=== PATIENT | female | born 1955 | race Caucasian/White ===

== ENCOUNTER 2020-12-23 10:52 | Emergency (ER) | payer MEDICARE, OTHER ==
[2020-12-23] MEDS ORDERED: Adenosine 6 MG/2 ML SDV IVPUSH ONE (11:09)
[2020-12-23] MEDS ORDERED: Adenosine 12 MG/4 ML SDV ONE (11:14)
[2020-12-23] MEDS ORDERED: Sodium Chloride 0.9% 1,000 ML IV SCH (11:15)
--- NOTE | 2020-12-23 11:23 | EDM.PDOC ---
ED HPI GENERAL MEDICAL PROBLEM - General Chief Complaint: Cardiovascular Problem Stated Complaint: CHEST PAIN AND SOB Time Seen by Provider: 12/23/20 11:03 Source of Information: Reports: Patient, Family History Limitations: Reports: No Limitations - History of Present Illness INITIAL COMMENTS - FREE TEXT/NARRATIVE: 65-year-old female presents to the ED feeling lightheaded dizzy with central chest pressure discomfort and a feeling like her heart is racing. She appreciates weakness in her lower extremities with trying to walk. Symptoms developed about an hour before coming to the ED. Associated nonproductive cough that she did not have prior. When she was attached to the monitor she was found to be in SVT at 167/min. She has no history of previous SVT issues. She a ppreciated some increased swelling in her lower extremities the last few days but they have been traveling and spending lengthy time in the car in route to [place]. Onset: Today, Sudden Onset Date: 12/23/20 Onset Time: 10:00 Duration: Minutes:, Constant, Getting Worse Location: Reports: Chest (Central chest discomfort with feeling her heart is racing.) Quality: Reports: Pressure Severity: Mild Improves with: Reports: None Worsens with: Reports: Other (Used to be worse with exertion.) Associated Symptoms: Reports: Chest Pain, Cough, Malaise, Shortness of Breath, Other. 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 (see below) (Only her regular medications.) Chest Pain Score (Numeric/FACES): 7 - Related Data Allergies Allergy/AdvReac Type Severity Reaction Status Date / Time erythromycin base Allergy Cannot Verified 07/11/19 16:06 NIPPLE MAKER Remember Penicillins Allergy Nausea Verified 12/23/20 11:10 Home Meds: Home Meds lisinopriL [Lisinopril] 20 mg PO DAILY 07/11/19 [History] Aspirin 81 mg PO DAILY 12/23/20 [History] Past Medical History Cardiovascular History: Reports: Hypertension Gastrointestinal History: Reports: GERD Endocrine/Metabolic History: Reports: Obesity/BMI 30+ Social & Family History - Alcohol Use Alcohol Use History: Yes - Living Situation & Occupation Living situation: Reports: Occupation: Retired ED ROS GENERAL - Review of Systems Review Of Systems: See Below Constitutional: Reports: Fatigue. Denies: Fever, Chills, Malaise, Weakness HEENT: Reports: Glasses Respiratory: Reports: Shortness of Breath (For reading only.), Cough. Denies: Wheezing, Pleuritic Chest Pain, Sputum, Hemoptysis (Nonproductive cough) Cardiovascular: Reports: Chest Pain, Blood Pressure Problem (Mild central chest pressure discomfort associated with SVT. Takes lisinopril daily.), Edema (Mild lightheadedness and dizziness this morning. He is appreciated lower extremity edema for the last for 5 days since they are traveling and spending a large), Lightheadedness. Denies: Claudication, Dyspnea on Exertion ( part of the day in the car.), Orthopnea, Palpitations Endocrine: Reports: Fatigue GI/Abdominal: Reports: Constipation, Other (Occasional constipation) : Reports: Frequency, Incontinence (Rare urge and stress incontinence) Musculoskeletal: Reports: Back Pain, Joint Pain (Pain in hips and knees at times.) Skin: Reports: No Symptoms Neurological: Reports: No Symptoms Psychiatric: Reports: No Symptoms Hematologic/Lymphatic: Reports: No Symptoms Immunologic: Reports: No Symptoms ED EXAM, GENERAL - Physical Exam Exam: See Below Exam Limited By: No Limitations General Appearance: Alert, WD/WN, Anxious, Mild Distress, Other (Temperature is 36.3. Heart rate 167 bpm and SVT on the monitor. Respiratory rate is 28/min with O2 sats of 97% room air. BP 108/63.) Eye Exam: Bilateral Eye: Normal Inspection (No scleral icterus or blepharal pallor.), PERRL Throat/Mouth: Normal Inspection, Normal Oropharynx, Other Neck: Normal Inspection, Supple, Non-Tender, Full Range of Motion. No: Carotid Bruit, Lymphadenopathy (L), Lymphadenopathy (R) Respiratory/Chest: No Respiratory Distress, Lungs Clear, Normal Breath Sounds, No Accessory Muscle Use, Decreased Breath Sounds (Mild breath sounds are mildly decreased to both lung donnelly I believe due to her size.) Cardiovascular: Normal Peripheral Pulses, No Gallop, No Murmur, No Rub, Tachycardia (Tachycardia I SVT on the monitor at 168/min). No: Regular Rate, Rhythm, No Edema Peripheral Pulses: 2+: Posterior Tibial (L), Posterior Tibial (R), Dorsalis Pedis (L), Dorsalis Pedis (R), 3+: Carotid (L), Carotid (R) GI/Abdominal: Normal Bowel Sounds, Soft, Non-Tender, No Organomegaly, No Abnormal Bruit, No Mass, Pelvis Stable, Other (Nikos girth limits ability to palpate solid organs. Has midline laparotomy scars from umbilicus to pubic symphysis with x2.) Extremities: Normal Inspection, Normal Range of Motion, Non-Tender, Pedal Edema (1+ pitting edema both lower extremities.) Neurological: Alert, Oriented, CN II-XII Intact, Normal Cognition. No: Normal Gait Psychiatric: Normal Affect, Anxious Skin Exam: Warm, Dry, Intact, Normal Color, No Rash #1 Interpretation EKG Date: 12/23/20 Time: 10:59 Rhythm: Other (SVT) Rate (Beats/Min): 164 [place]: Normal P-Wave: Variable QRS: Other (Q wave in lead V1 only. Decreased voltage limb and precordial leads) ST-T: Other (Mild ST segment depression V3 V4 V5 V6 and lead III and aVF compatible with ischemia this could also represent repolarization abnormality due to rapid rate.) QT: Prolonged (QTC is markedly prolonged at 565.) #2 Interpretation EKG Date: 12/23/20 Time: 11:23 Rhythm: Other (Sinus tachycardia) Rate (Beats/Min): 105 [place]: Normal P-Wave: Enlarged (Left atrial hypertrophy) QRS: Other (Decreased voltage precordial leads initial poor R wave progression with T wave inversion V1 V2.) ST-T: Other (T wave flattening aVL nonspecific finding T wave flattening in V2 as well. There is an improvement of the ST segment baseline in all leads once her heart was slow down.) QT: Prolonged (Mildly prolonged) EKG Interpretation Comments: Borderline ECG Course - Vital Signs Last Recorded V/S: Last Vital Signs Temp 36.3 C 12/23/20 11:25 Pulse 167 H 12/23/20 11:25 Resp 28 H 12/23/20 11:25 BP 108/63 12/23/20 11:25 Pulse Ox 97 12/23/20 11:25 - Orders/Labs/Meds Orders: Active Orders 24 hr Category Date Time Status EKG Documentation Completion [RC] STAT Care 12/23/20 11:23 Active Sodium Chloride 0.9% [Normal Saline] 1,000 ml Med 12/23/20 11:15 Active IV ASDIRECTED Medication Orders Sodium Chloride (Normal Saline) 1,000 mls @ 999 mls/hr IV ASDIRECTED ANGEL Last Admin: 12/23/20 11:21 Dose: 100 mls/hr Documented by: LISSY Labs: Laboratory Tests 12/23/20 12/23/20 12/23/20 Range/Units 11:05 11:05 11:05 WBC 7.47 (3.98-10.04) K/mm3 RBC 4.71 (3.98-5.22) M/mm3 Hgb 15.0 (11.2-15.7) gm/dl Hct 46.5 H (34.1-44.9) % MCV 98.7 H (79.4-94.8) fl MCH 31.8 (25.6-32.2) pg MCHC 32.3 (32.2-35.5) g/dl RDW Std Deviation 44.0 (36.4-46.3) fL Plt Count 205 (182-369) K/mm3 MPV 10.0 (9.4-12.3) fl Neut % (Auto) 55.6 (34.0-71.1) % Lymph % (Auto) 33.3 (19.3-51.7) % [place] % (Auto) 6.8 (4.7-12.5) % Eos % (Auto) 3.7 (0.7-5.8) Baso % (Auto) 0.5 (0.1-1.2) % Neut # (Auto) 4.14 (1.56-6.13) K/mm3 Lymph # (Auto) 2.49 (1.18-3.74) K/mm3 [place] # (Auto) 0.51 H (0.24-0.36) K/mm3 Eos # (Auto) 0.28 (0.04-0.36) K/mm3 Baso # (Auto) 0.04 (0.01-0.08) K/mm3 PT 10.6 (9.7-12.0) SECONDS INR 0.99 APTT 27.4 (21.7-31.4) SECONDS Sodium 142 (136-145) mEq/L Potassium 3.9 (3.5-5.1) mEq/L Chloride 104 (98-107) mEq/L Carbon Dioxide 26 (21-32) mEq/L Anion Gap 15.9 H (5-15) BUN 11 (7-18) mg/dL Creatinine 0.9 (0.55-1.02) mg/dL Est Cr Clr Drug Dosing 50.18 mL/min Estimated GFR (MDRD) > 60 (>60) mL/min BUN/Creatinine Ratio 12.2 L (14-18) Glucose 211 H (70-99) mg/dL Calcium 8.7 (8.5-10.1) mg/dL Magnesium 1.6 L (1.8-2.4) mg/dL Total Bilirubin 0.7 (0.2-1.0) mg/dL AST 35 (15-37) U/L ALT 54 (14-59) U/L Alkaline Phosphatase 77 (46-116) U/L Troponin I < 0.017 (0.00-0.056) ng/mL NT-Pro-B Natriuret Pep (0-125) pg/mL Total Protein 7.4 (6.4-8.2) g/dl Albumin 3.8 (3.4-5.0) g/dl Globulin 3.6 gm/dL Albumin/Globulin Ratio 1.1 (1-2) 12/23/20 Range/Units 11:05 WBC (3.98-10.04) K/mm3 RBC (3.98-5.22) M/mm3 Hgb (11.2-15.7) gm/dl Hct (34.1-44.9) % MCV (79.4-94.8) fl MCH (25.6-32.2) pg MCHC (32.2-35.5) g/dl RDW Std Deviation (36.4-46.3) fL Plt Count (182-369) K/mm3 MPV (9.4-12.3) fl Neut % (Auto) (34.0-71.1) % Lymph % (Auto) (19.3-51.7) % [place] % (Auto) (4.7-12.5) % Eos % (Auto) (0.7-5.8) Baso % (Auto) (0.1-1.2) % Neut # (Auto) (1.56-6.13) K/mm3 Lymph # (Auto) (1.18-3.74) K/mm3 [place] # (Auto) (0.24-0.36) K/mm3 Eos # (Auto) (0.04-0.36) K/mm3 Baso # (Auto) (0.01-0.08) K/mm3 PT (9.7-12.0) SECONDS INR APTT (21.7-31.4) SECONDS Sodium (136-145) mEq/L Potassium (3.5-5.1) mEq/L Chloride (98-107) mEq/L Carbon Dioxide (21-32) mEq/L Anion Gap (5-15) BUN (7-18) mg/dL Creatinine (0.55-1.02) mg/dL Est Cr Clr Drug Dosing mL/min Estimated GFR (MDRD) (>60) mL/min BUN/Creatinine Ratio (14-18) Glucose (70-99) mg/dL Calcium (8.5-10.1) mg/dL Magnesium (1.8-2.4) mg/dL Total Bilirubin (0.2-1.0) mg/dL AST (15-37) U/L ALT (14-59) U/L Alkaline Phosphatase (46-116) U/L Troponin I (0.00-0.056) ng/mL NT-Pro-B Natriuret Pep 111 (0-125) pg/mL Total Protein (6.4-8.2) g/dl Albumin (3.4-5.0) g/dl Globulin gm/dL Albumin/Globulin Ratio (1-2) Meds: Medications Generic Name Dose Route Start Last Admin Trade Name Freq PRN Reason Stop Dose Admin Sodium Chloride 1,000 mls @ 999 mls/hr 12/23/20 11:15 12/23/20 11:21 Normal Saline IV 100 mls/hr ASDIRECTED ANGEL Administration Discontinued Medications Generic Name Dose Route Start Last Admin Trade Name Freq PRN Reason Stop Dose Admin Adenosine 6 mg 12/23/20 11:09 12/23/20 11:17 Adenosine 6 Mg/2 Ml Sdv IVPUSH 12/23/20 11:10 6 mg NOW ONE Administration Adenosine Confirm 12/23/20 11:14 12/23/20 11:22 Adenosine 12 Mg/4 Ml Sdv Administered 12/23/20 11:15 Not Given Dose 12 mg [facility] Interpretation Free Text/Narrative:: 65-year-old female presents to the ED with palpitations and associated central chest discomfort or pressure. Dizziness lightheadedness weakness in her lower extremities. She states symptoms started about an hour before coming to the ED. On the monitor she is in SVT at around 165 bpm. She does not believe she is ever had this problem before. She states she has had anxiety with chest discomfort but this feels different. Denies cough or sputum production. No known coronary disease. She is obese with no known diabetes. She is patt reciated increased dependent edema in her lower extremity since they are traveling. Plan normal saline at open. Will be given Adenocard IV to see if we can convert her back to sinus rhythm. Portable chest x-ray to be done. Routine labs to be collected including BNP and magnesium. - Re-Assessments/Exams Free Text/Narrative Re-Assessment/Exam: 12/23/20 11:20: Patient was successfully converted back to sinus rhythm around 110 bpm with Adenocard 6 mg IV bolus. Second ECG will be obtained. 12/23/20 11:37 second ECG reveals sinus tachycardia at 110 bpm. There is left atrial hypertrophy pattern. Decreased voltage precordial leads due to thick chest. Initial poor R wave progression with T wave inversion V1 V2. Previously seen ST segment depression in V4 to V6 has resolved once the rate was decreased. Patient will have routine labs and a chest x-ray performed. 12/23/20 11:59 chest x-ray done portably reveals moderate cardiomegaly with diffuse vascular congestion pattern. There appears to be a consolidated segment of the right lower lobe of the lung possibly suggesting pneumonia. Will await radiologist's opinion in this regard heart rate is sinus tachycardia at 104/min. Blood pressure is 99/55. 12/23/20 12:09 blood pressure is improved to 119/80.Hematology reveals a normal white count at 7.47. Differential is 55.6% neutrophils. Hemoglobin 15.0 with hematocrit of 46.5 MCV is slightly elevated at 98.7. Platelet count is 205,000. PT is 10.6 with an INR of 0.99 and a PTT of 27.4 12/23/20 12:23 theology interpretation of chest x-ray reveals heart size to be within normal limits for portable technique. Tortuous thoracic aorta appreciated. Slight prominent density within the right cardiophrenic angle is seen most likely due to a fat pad. Lungs otherwise are clear with no acute parenchymal changes. No acute osseous abnormalities appreciated 12/23/20 13:07 Chemistry reveals a sodium of 142 and a potassium of 3.9. Chl oride is 104 with a bicarb of 26. Anion gap is 15.9. BUN is 11 with a creatinine of 0.9 and GFR greater than 60. Glucose is elevated at 211. Calcium is 8.7. Magnesium slightly low at 1.6. Liver function normal. Troponin I is less than 0.017 BNP is 111. Total protein 7.4 with an albumin fraction of 3.8. Patient has remained in sinus rhythm at 95/min since adenocard cardioversion. She will be discharged home. She is feeling fine at this point time other than being a little hungry. Departure - Departure Time of Disposition: 13:08 Disposition: Home, Self-Care 01 Reason for Transfer *Q: Other Condition: Fair Clinical Impression: Supraventricular tachycardia Hypertensive heart disease Qualifiers: Heart failure presence: without heart failure Qualified Code(s): I11.9 - Hypertensive heart disease without heart failure Referrals: PCP,Not In Area [Primary Care Provider] - Forms: ED Department Discharge Additional Instructions: Evaluation in the emergency room today in regards to development of rapid heart rate an hour before coming to the ED associate with some central chest pressure discomfort and shortness of breath with mild dizziness and lightheadedness. ECG revealed that you were in a rhythm called supraventricular tachycardia at about 165 bpm. Normal heart rate is 55 to 100 bpm. This produced some transient increased fluid or backup of fluid in your lungs which made you short of breath. Chest x-ray reveals heart to be mildly enlarged from high blood pressure. I would suggest follow-up with your primary care physician when you get back home to have an echocardiogram completed. You were converted back to regular rhythm with a medication called Adenocard and required only 6 mg or 1 dose of the medication to do the trick. Lab test revealed no other abnormalities other than slightly low serum magnesium level which comes out of meat sources. I would suggest picking up a magnesium supplement called magnesium oxide and taking a tablet once daily. Sepsis Event Note (ED) - Focused Exam Vital Signs: Vital Signs Temp Pulse Resp BP Pulse Ox 12/23/20 11:25 36.3 C 167 H 28 H 108/63 97 - My Orders Last 24 Hours: My Active Orders 12/23/20 11:15 Sodium Chloride 0.9% [Normal Saline] 1,000 ml IV ASDIRECTED 12/23/20 11:23 EKG Documentation Completion [RC] STAT - Assessment/Plan Last 24 Hours: My Active Orders 12/23/20 11:15 Sodium Chloride 0.9% [Normal Saline] 1,000 ml IV ASDIRECTED 12/23/20 11:23 EKG Documentation Completion [RC] STAT
--- NOTE | 2020-12-23 12:17 | CR ---
Chest: Frontal view of the chest was obtained utilizing portable technique. Comparison: No prior chest imaging is available. Heart size is within normal limits for portable technique. Tortuous thoracic aorta is seen. Slightly prominent density within the right cardiophrenic angle is seen most likely due to fat pad. Lungs otherwise are clear with no acute parenchymal change. No acute osseous abnormalities appreciated. Impression: 1. Findings as noted above. 2. Nothing acute is seen. Diagnostic code #1
== END 2020-12-23 13:35 | disposition home or self-care (01) ==
LOC: JD.ED 10:52
DX: I47.1 Supraventricular tachycardia (principal); I11.9 Hypertensive heart disease without heart failure; K21.9 Gastro-esophageal reflux disease without esophagitis; E66.9 Obesity, unspecified; Z68.43 Body mass index [BMI] 50.0-59.9, adult; Z88.1 Allergy status to other antibiotic agents; Z88.0 Allergy status to penicillin; Z79.82 Long term (current) use of aspirin; Z79.899 Other long term (current) drug therapy; R06.02 Shortness of breath
CPT/HCPCS: 36415; 71045; 80053; 83735; 83880; 84484; 85025; 85610; 85730; 93005; 96374; 99285; J0153; J7030; 93010